=== PATIENT | male | born 1965 | race Caucasian/White ===

== ENCOUNTER 2019-09-02 08:04 | Emergency (ER) | payer OTHER ==
[~2019-09-02] VITALS: Ht 175.3 cm; Wt 68.0 kg
[2019-09-02] MEDS ORDERED: PLAVIX 75 MG TA75 MG PO (08:18)
[2019-09-02] MEDS ORDERED: NORCO 5-325 TA1 EAC1 PO (08:25)
[2019-09-02 09:27] VITALS: BP 142/82
== END 2019-09-02 09:29 | disposition home or self-care (01) ==
LOC: M.ERS 08:04
DX: S93.492A Sprain of other ligament of left ankle, initial encounter (principal); F17.210 Nicotine dependence, cigarettes, uncomplicated; X50.0XXA Overexertion from strenuous movement or load, initial encounter; Y92.89 Other specified places as the place of occurrence of the external cause; Y93.89 Activity, other specified; Y99.8 Other external cause status